=== PATIENT | male | born 1985 | race Caucasian/White ===

== ENCOUNTER 2017-09-01 11:04 | Emergency (ER) | payer OTHER ==
[2017-09-01 11:09] VITALS: BP 124/71
--- NOTE | 2017-09-01 12:04 | EDPHY ---
H & P Time Seen by Provider: 09/01/17 11:10 HPI/ROS: CHIEF COMPLAINT: Right ankle injury HISTORY OF PRESENT ILLNESS: 32-year-old male presents to the emergency department by private vehicle with injury to his right ankle. The patient was hiking and fell approximately 3 ft rolling his right ankle. He states that it feels very unstable. The incident happened just prior to arrival. He denies any other trauma or injury. Specifically he did not hit his head or lose consciousness. He has had previous ankle injuries. ROS: Denies numbness or tingling in his toes, pain in his right foot or right knee. Past Medical/Surgical History: Orthopedic injuries Social History: The patient is in the and lives in [place] Smoking Status: Never smoked Physical Exam: On examination the patient has mild swelling noted to the lateral aspect of the right ankle. He has reproducible pain with palpation over the lateral malleolus. There is no obvious ligament instability however this is difficult to test given his pain. He has limited dorsiflexion secondary to pain. Full plantar flexion. Nontender to palpate the medial aspect of the right ankle. No abrasions noted around the ankle. There is some superficial abrasions noted to the anterior aspect of the right mid anterior leg. No ecchymosis. Normal sensation to light touch with normal 2 point discrimination. Strong dorsalis pedis pulse on the dorsal aspect of the right foot. Constitutional: Initial Vital Signs Temperature (C) 36.4 C 09/01/17 11:08 Heart Rate 63 09/01/17 11:08 Respiratory Rate 18 09/01/17 11:08 Blood Pressure 124/71 H 09/01/17 11:08 O2 Sat (%) 98 09/01/17 11:08 O2 Delivery Mode Room Air Allergies/Adverse Reactions: No Known Allergies Allergy (Unverified 09/01/17 11:06) Home Medications: Medication Instructions Recorded NK [No Known Home Meds] 09/01/17 MDM/Departure - MDM Imaging Results: Imaging Impressions Ankle X-Ray 09/01/17 11:14 Impression: No definite acute abnormality identified. See above. Imaging: I viewed and interpreted images myself Procedures: Patient was placed in a Osorio boot and examined post application in good placement with normal [place]. He was also given crutches. ED Course/Re-evaluation: 32-year-old male presents emergency department with right ankle injury. X-rays reveal possible small avulsion fracture off the lateral malleolus. The patient was placed in Osorio boot and given crutches and given orthopedic referral. He states that he will likely follow up in [place] where he is from. - Depart Disposition: Home, Routine, Self-Care Clinical Impression: Right ankle sprain Qualifiers: Encounter type: initial encounter Involved ligament of ankle: unspecified ligament Qualified Code(s): S93.401A - Sprain of unspecified ligament of right ankle, initial encounter Avulsion fracture of right ankle Qualifiers: Encounter type: initial encounter Fracture type: closed Qualified Code(s): S82.891A - Other fracture of right lower leg, initial encounter for closed fracture Condition: Good Instructions: Ankle Sprain (ED) Additional Instructions: Weightbear as tolerated. Osorio boot for comfort and support. You may use crutches if you are unable to weight bear without severe pain. Ibuprofen 600 mg every 8 hr as needed for pain. Referrals: Feliz Sarah MD [Medical Doctor] - 2-3 days without fail (Orthopedic surgeon on-call)
== END 2017-09-01 12:14 | disposition home or self-care (01) ==
DX: S82.891A Other fracture of right lower leg, initial encounter for closed fracture (principal); S93.401A Sprain of unspecified ligament of right ankle, initial encounter; W17.89XA Other fall from one level to another, initial encounter; Y99.8 Other external cause status; Y93.01 Activity, walking, marching and hiking
CPT/HCPCS: L4386